=== PATIENT | female | born 2000 | race African-American/Black ===

== ENCOUNTER 2020-02-06 09:32 | Day surgery (SDC) | payer OTHER ==
[2020-02-01 14:34] VITALS: BMI 30.3
[~2020-02-06 09:32] MED LIST: LACTATED RINGERS SOLUTION 1,000 ML IV SCH; ONDANSETRON 4 MG/2 ML VIAL IVPUSH PRN; oxyCODONE HCL 5 MG TABLET PO PRN
[2020-02-06] MEDS ORDERED: MIDAZOLAM HCL 2 MG/2 ML SINGLE DOSE VIAL ONE ×2 (09:45)
[2020-02-06] MEDS ORDERED: PROPOFOL 20 ML ONE ×2 (09:45)
[2020-02-06] MEDS ORDERED: KETOROLAC TROMETHAMINE 30 MG/1 ML VIAL ONE (09:45)
[2020-02-06] MEDS ORDERED: ONDANSETRON 4 MG/2 ML VIAL ONE (09:45)
[2020-02-06] MEDS ORDERED: LIDOCAINE HCL/PF 2% SDV 5ML VIAL ONE (09:45)
[2020-02-06] MEDS ORDERED: LIDOCAINE HCL 2% (50ML VIAL) NR ONE (11:45)
[2020-02-06] MEDS ORDERED: GUM MASTIC/STORAX/MSAL/ALCOHOL 1 DRP DROPSBTL MC ONE (12:02)
[2020-02-06 12:53] VITALS: TEMP 97.7
[2020-02-06 13:15] VITALS: BP 125/80; PULSE 68
--- NOTE | 2020-02-06 15:10 | OP ---
DATE OF OPERATION: 02/06/2020 PREOPERATIVE DIAGNOSIS: Right de Quervain tenosynovitis. POSTOPERATIVE DIAGNOSIS: Right de Quervain tenosynovitis. OPERATIVE PROCEDURE: Right de Quervain tenosynovitis release of the 1st dorsal compartment. SURGEON: Bo Carrero MD ANESTHESIA: Local with sedation. COMPLICATIONS: None. ESTIMATED BLOOD LOSS: Minimal. INDICATIONS FOR PROCEDURE: The patient has persistent pain in the right 1st dorsal compartment. She is indicated for operative treatment. Risks, benefits, and alternatives were discussed with her at length, and proper informed consent was obtained. DESCRIPTION OF PROCEDURE: After preoperative identification of the patient, correct operative site, patient brought to the operating room, placed supine on the table with all prominences well padded. Sedation and local anesthesia were given. Right upper extremity was prepped, draped in sterile fashion. Well-padded tourniquet was placed over the sterile prep. Esmarch bandage used the exsanguinate the right upper extremity. Tourniquet was inflated to 250 mmHg. Transverse incision was made over the wrist crease over the radial styloid. Incision was taken sharply through the skin, with blunt and sharp dissection through subcutaneous tissues. Neurovascular structures were carefully dissected. First dorsal compartment was identified and divided along its dorsal border. This was a very tight compartment, and a subcompartment was also found which was also released. Careful inspection was performed to ensure no other subcompartments were there. There was no subluxation of the tendons with motion. Wound was irrigated and repaired with 4-0 Monocryl sutures. Steri-Strips, sterile dressings were applied. Patient was reversed from anesthesia, brought to recovery room in stable condition. She tolerated the procedure well. BO CARRERO M.D. [id number]
== END 2020-02-06 13:00 | disposition home or self-care (01) ==
LOC: FASU 09:32
PROVIDERS: ATTEND Orthopaedic Surgery Hand Surgery
PROC: 0LN50ZZ Release Right Lower Arm and Wrist Tendon, Open Approach (ICD-10-PCS; principal; 2020-02-06 11:49)
DX: M65.4 Radial styloid tenosynovitis [de Quervain] (principal)
CPT/HCPCS: 84703